=== PATIENT | female | born 1980 | race Caucasian/White ===

== ENCOUNTER 2020-02-02 08:55 | Day surgery (SDC) | payer OTHER ==
[~2020-02-02 08:55] MED LIST: Buffered Lidocaine 1% SYRIN 1 ml INTRADERM ONE; DOXYcycline IV 200 MG in NS 250 mL *Pre-Op OBGYN IVPB ONE; Lactated Ringers 1000 ml BAG 1,000 ML IV SCH
[2020-02-02] MEDS ORDERED: Buffered Lidocaine 1% SYRIN 1 ml INTRADERM ONE (09:16)
[2020-02-02] MEDS ORDERED: Chloroprocaine 3% 20 ml VIAL ONE (12:04)
[2020-02-02] MEDS ORDERED: Midazolam 5 mg/5 ml VIAL 1 mg/ml 5 ml VIAL (5 mg) ONE (12:13)
[2020-02-02] MEDS ORDERED: fentaNYL 250 mcg/5 ml 50 MCG/ML 5 ml VIAL (250 MCG) ONE (12:13)
[2020-02-02] MEDS ORDERED: Propofol 10 MG/ML 20 ML BTL ONE (12:28)
[2020-02-02] MEDS ORDERED: Naloxone 0.4 mg VIAL 0.4 mg/ml 1 ml VIAL IV PRN (12:53)
[2020-02-02] MEDS ORDERED: diPHENhydraMINE IV 50 MG/ML 1 ml VIAL (BENADRYL) IV PRN (12:53)
[2020-02-02] MEDS ORDERED: Ondansetron 4 mg VIAL 2 MG/ML 2 ml VIAL IV PRN (12:53)
[2020-02-02 15:18] VITALS: BP 116/76
== END 2020-02-02 15:00 | disposition home or self-care (01) ==
LOC: OR 08:55
PROVIDERS: ATTEND Obstetrics & Gynecology